=== PATIENT | female | born 1980 | race Caucasian/White ===

== ENCOUNTER 2021-01-03 16:43 | Outpatient (CLI) | payer OTHER, SELFPAY ==
--- NOTE | ~2021-01-03 | US_ITS ---
US venous doppler LE RT DATE: 01/03/2021 17:13 INDICATION: Right calf pain TECHNIQUE: Real-time and color flow imaging and Doppler analysis of the right lower extremity veins COMPARISON: None FINDINGS: The greater saphenous vein and deep veins of the right lower extremity are patent. There is spontaneous and phasic flow, normal augmentation and color flow signal and normal compression. IMPRESSION: No evidence of deep venous thrombosis of right lower extremity Reviewed, dictated and finalized at [facility]. Reviewed, dictated and finalized at [facility].
== END 2021-01-03 16:44 | disposition home or self-care (01) ==
LOC: ANHIMG 16:49
DX: I82.401 Acute embolism and thrombosis of unspecified deep veins of right lower extremity (principal)
CPT/HCPCS: 93971

== ENCOUNTER 2025-01-31 23:02 | Emergency (ER) | payer OTHER, SELFPAY | END 2025-01-31 23:12 | disposition left against medical advice (07) | LOC: ANHED 23:46 | DX: Z53.21 Procedure and treatment not carried out due to patient leaving prior to being seen by health care provider (principal) | CPT/HCPCS: 99199 ==

== ENCOUNTER 2025-02-02 00:20 | Emergency (ER) | payer OTHER, SELFPAY ==
--- NOTE | ~2025-02-02 | CT_ITS ---
EXAMINATION: CT abdomen pelvis w con DATE: 02/02/2025 01:56 INDICATION: Abdominal pain. TECHNIQUE: Computed tomography (CT) of the abdomen and pelvis was performed with 100 mL Omnipaque 350 intravenous contrast. Automated exposure control and iterative reconstruction technique were employed. The dose-length product was 650.98 mGy-cm. COMPARISON: CT abdomen and pelvis 07/04/2014 FINDINGS: The visualized portions of the lung bases demonstrate mild atelectasis. No pleural effusion. The heart size is normal. No pericardial effusion. There is a small sliding hiatal hernia. The liver and spleen are normal. The gallbladder is contracted. The pancreas, adrenal glands, and kidneys are normal. There are no dilated loops of bowel. The appendix is normal. There are no pathologically enlarged lymph nodes. There is no ascites. There is a supraumbilical ventral hernia containing fat. There is moderate thoracic spondylosis and mild lumbar spondylosis. IMPRESSION: 1. Small sliding hiatal hernia. 2. Supraumbilical ventral hernia containing fat. Reviewed, dictated and finalized at [facility].
[2025-02-02 00:24] VITALS: BP 116/84; PULSE 98; RESP 18; TEMP 36.6; O2SAT 100
--- NOTE | 2025-02-02 01:03 | ED_ITS ---
HPI - General Adult General Chief complaint: Unspecified Stated complaint: I think i have a blood clot Time Seen by Provider: 02/02/25 00:51 History of Present Illness HPI narrative: 44-year-old otherwise healthy female presenting to the emergency department for evaluation of abdominal pain. She states she went to [facility] multiple times over last 2 weeks for concerns of a blood clot. She states she has had multiple Doppler studies of her left lower extremity as well as a CT angiography of the chest did not show any blood clot but she did have an elevated dimer. She is convinced that she has a blood clot and thinks it could be in her abdomen. Denies any new symptoms or traumatic injuries. She states she injured her left ankle after dropping a wooden beam on at almost 2 weeks ago but no other injuries. No systemic features such as fever, chills, chest pain, shortness a breath no nausea vomiting. Patient is requesting a CT scan of her abdomen to assess for anything going on there because she is having lower abdominal pain but no other GI or symptoms. Denies any chance of as she has a hysterectomy. No other complaints at this time. Patient came to this hospital as she states she was not getting appropriate care at [place]. Related Data Allergies Allergy/AdvReac Type Severity Reaction Status Date / Time codeine Allergy Mild Anaphylaxis Verified 02/02/25 00:32 Course Vital Signs Vital signs: Vital Signs Temperature 36.6 C 02/02/25 00:24 Pulse Rate 98 02/02/25 00:24 Respiratory Rate 18 02/02/25 00:24 Blood Pressure 116/84 02/02/25 00:24 Pulse Oximetry 100 02/02/25 00:24 Oxygen Delivery Room Air 02/02/25 00:24 Temperature 36.6 C 02/02/25 00:24 Pulse Rate 89 02/02/25 03:50 Respiratory Rate 18 02/02/25 03:50 Blood Pressure 127/88 02/02/25 03:50 Pulse Oximetry 97 02/02/25 03:50 Oxygen Delivery Room Air 02/02/25 00:24 Medical Decision Making MDM Narrative Medical decision making narrative: 44-year-old otherwise healthy female presenting to the emergency department for evaluation of abdominal pain. She states she went to [facility] multiple times over last 2 weeks for concerns of a blood clot. She states she has had multiple Doppler studies of her left lower extremity as well as a CT angiography of the chest did not show any blood clot but she did have an elevated dimer. She is convinced that she has a blood clot and thinks it could be in her abdomen. Denies any new symptoms or traumatic injuries. She states she injured her left ankle after dropping a wooden beam on at almost 2 weeks ago but no other injuries. No systemic features such as fever, chills, chest pain, shortness a breath no nausea vomiting. Patient is requesting a CT scan of her abdomen to assess for anything going on there because she is having lower abdominal pain but no other GI or symptoms. Denies any chance of as she has a hysterectomy. No other complaints at this time. Patient came to this hospital as she states she was not getting appropriate care at [place]. Patient is hemodynamically stable. No tachycardia, fever, hypoxemia. She has a soft nontender nondistended abdomen. No signs of DVT on examination. Strong symmetric pulses. Warm extremities. Very low suspicion any acute intra- abdominal pathology but patient is adamant she needs to CT scan to rule out anything in her abdomen. She had he had CT angiography of her chest yesterday as well as multiple Doppler studies of her legs without any blood clots. Do not have these records but will proceed with CT scan of the abdomen with contrast and basic labs in the dimer was ordered. CT scan with contrast shows no abnormalities. Patient has an unremarkable dimer as it is negative per years criteria and her laboratory studies are unremarkable. Patient re-evaluated and having no symptoms at this time. Remains hemodynamically stable. Discussed CT findings and lab results and she was safely discharged with PCP follow-up. Medical Records Medical records reviewed: Yes I reviewed the external patient's medical records. Vital Signs Vital Signs: Vital Signs Temperature 36.6 C 02/02/25 00:24 Pulse Rate 98 02/02/25 00:24 Respiratory Rate 18 02/02/25 00:24 Blood Pressure 116/84 02/02/25 00:24 Pulse Oximetry 100 02/02/25 00:24 Oxygen Delivery Room Air 02/02/25 00:24 Temperature 36.6 C 02/02/25 00:24 Pulse Rate 89 02/02/25 03:50 Respiratory Rate 18 02/02/25 03:50 Blood Pressure 127/88 02/02/25 03:50 Pulse Oximetry 97 02/02/25 03:50 Oxygen Delivery Room Air 02/02/25 00:24 Lab Data Lab results reviewed: Yes I reviewed the patient's lab results. 02/02/25 01:04 02/02/25 01:04 Labs: Lab Results 02/02/25 02/02/25 Range/Units 01:04 01:23 WBC 10.4 H (4.5-10.0) K/mm3 RBC 4.11 L (4.2-5.4) M/mm3 Hgb 13.3 (12.0-15.0) g/dL Hct 39.6 (37.0-47.0) % MCV 96.4 (80-100) fl MCH 32.4 (26-34) pg MCHC 33.6 (32-36) g/dl RDW 12.1 (11.5-14.5) % Plt Count 368 (150-375) k/mm3 MPV 9.7 (7.4-10.4) fl Immature Gran % (Auto) 0.3 (0-0.5) % Neut % (Auto) 54.5 (45.5-73.1) % Lymph % (Auto) 38.0 (18.3-44.2) % [place] % (Auto) 5.0 (2.6-8.5) % Eos % (Auto) 1.5 (0-4.4) % Baso % (Auto) 0.7 (0.2-1.2) % Lymph # (Auto) 3.95 H (0.9-3.2) K/mm3 [place] # (Auto) 0.5 (0.1-0.6) K/mm3 Eos # (Auto) 0.2 (0-0.3) K/mm3 Baso # (Auto) 0.1 (0.0-0.1) K/mm3 Abs Immat Gran (auto) 0.03 (0.00-0.031) K/mm3 Absolute Neuts (auto) 5.7 (1.3-6.7) K/mm3 Absolute Nucleated RBC 0.000 (0.0-0.012) K/mm3 Nucleated RBC % 0.0 (0.0-0.2) % PT 12.5 (11.1-14.7) Seconds INR 0.9 APTT 34.2 (22.3-36.8) Seconds D-Dimer 0.54 H (<0.48) ug/mL Sodium 137 (137-145) mmol/L Potassium 4.0 (3.4-5.0) mmol/L Chloride 107 (98-107) mmol/L Carbon Dioxide 25 (22-30) mmol/L Anion Gap 5 (4-12) mmol/L BUN 11 (7-17) mg/dL Creatinine 0.60 L (0.7-1.0) mg/dL Estim Creat Clear Calc 109 ml/min Estimated GFR > 60 (59 - ) Glucose 81 (65-110) mg/dL Calcium 9.5 (8.4-10.2) mg/dL POC Urine HCG, Qual Negative (Negative) Discharge Plan Discharge Clinical Impression: Abdominal pain Patient Disposition: Home Condition: Stable Instructions: Antibiotic Form Patient Language: Latvian Follow-up/Referrals: PHYSICIAN,[facility] [Primary Care Provider, Internal Medicine] Time of Disposition: 03:41
[2025-02-02 01:11] LABS: Hematocrit 39.6 % (37.0-47.0); Hemoglobin 13.3 g/dL (12.0-15.0); Immature Granulocyte Percent A 0.3 % (0-0.5); Lymphocytes Absolute Auto 3.95 K/mm3 (0.9-3.2); Mean Corpuscular HGB Conc 33.6 g/dl (32-36); Mean Corpuscular Hemoglobin 32.4 pg (26-34); Mean Corpuscular Volume 96.4 fl (80-100); Nucleated Red Blood Cells Absolute Auto 0.000 K/mm3 (0.0-0.012); Nucleated Red Blood Cells Perc 0.0 % (0.0-0.2); Platelet Count Result 368 k/mm3 (150-375); Red Blood Count 4.11 M/mm3 (4.2-5.4); White Blood Count 10.4 K/mm3 (4.5-10.0)
[2025-02-02 01:21] LABS: Anion Gap 5 mmol/L (4-12); Blood Urea Nitrogen 11 mg/dL (7-17); Calcium 9.5 mg/dL (8.4-10.2); Carbon Dioxide 25 mmol/L (22-30); Chloride 107 mmol/L (98-107); Estimated CRCL calculation 109 ml/min; Estimated Glomerular Filt Rate > 60; Glucose 81 mg/dL (65-110); Potassium 4.0 mmol/L (3.4-5.0); Sodium 137 mmol/L (137-145)
[2025-02-02 01:25] LABS: BEDSIDEPREGUCG Negative (Negative)
[2025-02-02 02:07] LABS: INR 0.9; Prothrombin Time 12.5 Seconds (11.1-14.7)
[2025-02-02 02:08] LABS: Partial Thromboplastin Time 34.2 Seconds (22.3-36.8)
[2025-02-02 03:50] VITALS: BP 127/88; PULSE 89; RESP 18; O2SAT 97
== END 2025-02-02 03:50 | disposition home or self-care (01) ==
PROVIDERS: Emergency Provider Student in an Organized Health Care Education/Training Program
DX: R10.9 Unspecified abdominal pain (principal)
CPT/HCPCS: 36415; 74177; 80048; 81025; 85025; 85380; 85610; 85730; 99284; Q9967